=== PATIENT | female | born 1990 | race Caucasian/White ===

== ENCOUNTER → 2016-08-15 | Outpatient (CLI) | payer MEDICAID ==
[~2016-08-15] MED LIST: AZIT250T PO; SULF1TAB35 PO
[2016-08-15 18:51] VITALS: BP 100/72
--- NOTE | 2016-08-15 18:51 | Urgent Care T Sheet Gen (E) ---
Intake General Temperature (Fahrenheit): 97.7 Pulse: 107 Blood Pressure Systolic: 100 Blood Pressure Diastolic: 72 Respirations: 20 SPO2: 99 Chief Complaint: UC Genitourinary Complaint Description of Symptoms This 26 y/o woman is here today because of dysuria. She has been having a hard time going today and has only went once today and states it hurts when she goes. She also is concerned about an STD also. She is and reports that [place] was from [place] she slept with someone and has since found out he has been with many people. She has heard took about chalmdia. She is also describing swelling in her genital area with discharge from the vagina. She did have a lump on her left labia that is uncomfortable when she sits also. She currently takes Zoloft 50mg daily, she has some tramadol 50mg and hydrocodone for pain. She does not take both together. 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 Her PCP is Dr. Ceja in [place]. She says she is here because her has returned a work van here to [place] from there and they are headed back [facility]. She denies any troubles with defecation. Source: Patient History of Present Illness Onset & Duration: Days Timing: Still present Severity: Moderate Recent Trauma: No Similar Sympotms Previously: No Respiratory Constitutional Symptoms: No syptoms reported EENTM: No symptoms reported Respiratory: No symptoms reported Cardiovascular: No symptoms reported Gastrointestinal/Abdominal: No symptoms reported Genitourinary: See HPI Dysuria Pain : No Last menstrual period date: 07-15-16 Control/STD Prophylaxis: None Musculoskeletal: No symptoms reported Skin: No symptoms reported Neurological: No symptoms reported Hematologic/Lymphatic: No symptoms reported All Other Systems Reviewed Remaining Systems: All other systems reviewed with negative findings Past Gvifunu-Zngduh-Etmema Hx Patient's Social History Alcohol Use: Occasionally Uses Recreational Drug Use: Occasionally Uses Living Arrangement: With Spouse Physical Exam Physical Exam General Appearance: WD/WNNo No apparent distress, Mild distress GI/ Exam: Non tender No organomegaly Normal bowel sounds No distention Skin Exam: Normal color Warm/dry/intact No rashes No embolic lesions Comment Pelvic exam undertaken and there is notable swelling of the labia but no erythema. She does have a small cyst that has recently drained on the left labia centrally. A speculum was introduced with copious white discharge and cervix was visualized without lesion. I did perform a pap smear and collection for GC/Chlamdyia from the brush specimen. With that collection the cervix was noted as friable with some mild bleeding. No cervical motion tenderness. Progress/Orders Lab Results Labs Results: UA UA Lab Results ph 6.0 Specific [place] 1.020 Protein negative Glucose (UA) negative Ketones negative Blood 3+ Nitrates positive Bilirubin negative Urobilirubin 0.2 Leukocyte Esterase small Medications Administered Medications Adminstered: Rocephin IM (Rocephin 250mg IM to right gluteus.) Departure Urgent Care Impression Chief Complaint: UC Genitourinary Complaint Impression: Primary Impression: Urinary tract infection Additional Impression: STD exposure Departure Disposition: HOME OR SELF-CARE Condition: Stable Additional Instructions: The patient was informed that we do have a C&S pending on her urine for treatment of UTI. She was made aware that the Bactrim DS was ordered for that for 5 days of treatment. I have explained to the patient that we also have testing pending for GC/Chlamydia but I have opted to treat before the result is known that is why she was given the script for the Zithromax and the Rocephin was administered for coverage of possibly GC. I have advised the patient to hydrate well. We should be having results for her no later than 48 hours and she stated she could be contacted at [phone]. I also provided her a card with our number here and if she had not heard from us by to call us. I also have cautioned her based on exam that if her symptoms with dysuria do not improve or develops fever or pelvic pain to not hesitate to her follow up with her PCP. The patient was comfortable with the plan outlined and understands these instructions. Scripts Sulfamethoxazole/Trimethoprim (Bactrim DS)1 Each Tablet1 Tab PO BID Infection # 10 TAB Ref 0 Prov:SANDRA HERNANDEZ 08/15/16 Azithromycin (Zithromax)250 Mg [id number] Mg PO DAILY Infection #4 TAB Ref 0 4 tabs po with food times 1 day. Prov:SANDRA HERNANDEZ 08/15/16 End of report . SANDRA HERNANDEZ Aug 15, 2016 18:51
== END ==
LOC: MHUC 17:43
PROVIDERS: ATTEND Physician Assistant Medical
DX: N39.0 Urinary tract infection, site not specified (principal); Z20.2 Contact with and (suspected) exposure to infections with a predominantly sexual mode of transmission
CPT/HCPCS: 99203